=== PATIENT | male | born 1975 | race Asian ===

== ENCOUNTER → 2020-09-27 | Outpatient (CLI) | payer SELFPAY | LOC: EXRD 11:17 | DX: N50.819 Testicular pain, unspecified (principal) | CPT/HCPCS: 76870 ==

== ENCOUNTER → 2021-02-26 | Outpatient (CLI) | payer SELFPAY | LOC: CT 02-19 09:00 | DX: J32.9 Chronic sinusitis, unspecified (principal) | CPT/HCPCS: 70486 ==